=== PATIENT | female | born 1965 | race Caucasian/White ===

== ENCOUNTER 2018-09-24 05:39 | Inpatient (IN) | payer BC ==
[2018-09-24] MEDS: DEXTROSE 5%-0.45% NACL 1,000 ML IV ×2 (04:00→14:18)
[2018-09-24] MEDS: VANCOMYCIN 1 GM 250 ML IVPB (06:31)
[2018-09-24] MEDS: LACTATED RINGER'S 1,000 ML IV* (06:31)
[2018-09-24] MEDS ORDERED: PROPOFOL 20 ML (06:51)
[2018-09-24] MEDS ORDERED: BUPIVACAINE 0.25% (MPF) 30 ML INJ (06:51)
[2018-09-24] MEDS ORDERED: POLYMYXIN/BACITRACIN 1L IRRIG (06:51)
[2018-09-24] MEDS ORDERED: ROCURONIUM 50 MG INJ (06:53)
[2018-09-24 07:20] LABS: ADD UMIC YES; INR 0.96; PROTIME 12.9 Sec (11.9-14.9); UR ASCORBIC ACID 40 mg/dL (NEGATIVE); UR BACTERIA FEW /HPF (NONE SEEN); UR BILIRUBIN (Dip) NEGATIVE (NEGATIVE); UR BLOOD (Dip) NEGATIVE (NEGATIVE); UR CLARITY SLIGHTLY CLOUDY (CLEAR); UR COLOR YELLOW (YELLOW); UR GLUCOSE (Dip) NEGATIVE (NEGATIVE); UR KETONES (Dip) NEGATIVE (NEGATIVE); UR LEUKOCYTE ESTERASE (Dip) 3+ Leu/ul (NEGATIVE); UR MUCUS FEW /HPF (NONE SEEN); UR NITRITE (Dip) NEGATIVE (NEGATIVE); UR NONSQUAMOUS EPITHELIAL CELL 3 /HPF (NONE SEEN); UR RBC 7 /HPF (0-5); UR SPECIFIC GRAVITY (Dip) 1.018 (1.003-1.030); UR SQUAMOUS EPITHELIAL CELL FEW /HPF (FEW); UR TOTAL PROTEIN (Dip) 1+ mg/dl (NEGATIVE); UR UROBILINOGEN (Dip) NEGATIVE (NEGATIVE); UR WBC 64 /HPF (0-5)
[2018-09-24 07:21] LABS: PARTIAL THROMBOPLASTIN TIME 26.6 Sec (23.0-35.0)
[2018-09-24] MEDS ORDERED: HYDROmorphONE 2 MG/ML SYG (08:18)
[2018-09-24] MEDS: BUPIVACAINE 0.5%/EPI (SDV) 30 ML INJ (09:23)
[2018-09-24] MEDS: GELATIN SIZE 100 SPONGE (09:24)
[2018-09-24] MEDS: GENTAMICIN 80 MG INJ (09:24)
[2018-09-24] MEDS: HEPARIN 1000 UNITS/ML 10 ML INJ (09:25)
[2018-09-24] MEDS: THROMBIN (BOVINE) 5,000 UNIT VIAL TP (09:25)
[2018-09-24] MEDS ORDERED: NEOSTIGMINE 10 MG INJ (11:33)
[2018-09-24] MEDS ORDERED: GLYCOPYRROLATE 0.4 MG INJ (11:34)
[2018-09-24] MEDS ORDERED: FENTAnyl 50 MCG/ML VIAL IV ×3 (12:00)
[2018-09-24] MEDS ORDERED: METOCLOPRAMIDE 10 MG INJ IV (12:00)
[2018-09-24] MEDS ORDERED: ALBUTEROL 0.083% (NEB) 2.5 MG/3 ML AMP HHN (12:00)
[2018-09-24] MEDS ORDERED: MEPERIDINE 25 MG INJ IV (12:00)
[2018-09-24] MEDS ORDERED: EPHEDrine SULFATE 50 MG/5 ML SYG IV (12:00)
[2018-09-24] MEDS ORDERED: HYDROmorphONE 1 MG/5 ML IV SYRINGE IV ×3 (12:00)
[2018-09-24] MEDS ORDERED: hydrALAzine 20 MG INJ IV (12:00)
[2018-09-24] MEDS ORDERED: DIPHENHYDRAMINE 50 MG INJ IV (12:00)
[2018-09-24] MEDS ORDERED: LABETALOL HCL 20MG INJ IV (12:00)
[2018-09-24] MEDS ORDERED: MIDAZOLAM 1 MG/ML 2 ML INJ IV (12:00)
[2018-09-24] MEDS ORDERED: TRIMETHOBENZAMIDE 100 MG/ML VIAL IM (12:30)
[2018-09-24] MEDS ORDERED: PROCHLORPERAZINE 10 MG TAB PO (12:30)
[2018-09-24] MEDS ORDERED: HYDROCODONE/APAP (5/325) TAB PO ×2 (12:30)
[2018-09-24] MEDS ORDERED: NACL 0.9% 3 ML SYG IV (12:30)
[2018-09-24] MEDS ORDERED: ACETAMINOPHEN 325 MG TAB PO (12:30)
[2018-09-24] MEDS ORDERED: DIPHENHYDRAMINE 50 MG CAP PO (12:30)
[2018-09-24] MEDS ORDERED: BETHANECHOL 25 MG TAB PO (12:30)
[2018-09-24] MEDS ORDERED: ZOLPIDEM 5 MG TAB PO (12:30)
[2018-09-24] MEDS ORDERED: CEPASTAT LOZENGE MT (12:30)
[2018-09-24] MEDS ORDERED: NALOXONE (0.4 MG/ML) INJ IV (12:30)
[2018-09-24] MEDS ORDERED: DIAZEPAM 5 MG/ML SYG IM (12:30)
[2018-09-24] MEDS: HYDROmorphONE 0.2 MG/ML PCA IV (13:00)
[2018-09-24] MEDS: ONDANSETRON 4 MG INJ IV (14:41)
[2018-09-24] MEDS: VANCOMYCIN 1 GM (PMX) 250 ML IVPB (17:16)
[2018-09-24] MEDS: RANITIDINE 150 MG TAB PO (20:44)
[2018-09-24] MEDS: MONTELUKAST 10 MG TAB PO (20:44)
[2018-09-25] MEDS: HYDROmorphONE 0.2 MG/ML PCA IV (04:21)
[2018-09-25 05:19] LABS: HEMATOCRIT 31.9 % (37.0-47.0); HEMOGLOBIN 10.1 g/dl (12.0-16.0)
[2018-09-25] MEDS: VANCOMYCIN 1 GM (PMX) 250 ML IVPB (05:39)
[2018-09-25 06:04] LABS: ANION GAP 7 (5-13); BLOOD UREA NITROGEN 23 mg/dl (7-20); CALCIUM 8.1 mg/dl (8.4-10.2); CARBON DIOXIDE 25 mmol/L (21-31); CHLORIDE 106 mmol/L (97-110); CREATININE 0.92 mg/dl (0.44-1.00); Estimated GFR > 60 mL/min (>60); GLUCOSE 127 mg/dl (70-220); POTASSIUM 4.6 mmol/L (3.5-5.1); SODIUM 138 mmol/L (135-144)
[2018-09-25] MEDS: ONDANSETRON 4 MG INJ IV (07:40)
[2018-09-25] MEDS: DOCUSATE SODIUM 100 MG CAP PO ×2 (08:45→20:29)
[2018-09-25] MEDS: FERROUS SULFATE (EC) 325 MG TAB PO ×3 (08:45→20:28)
[2018-09-25] MEDS: ASCORBIC ACID 500 MG TAB PO ×2 (08:45→20:29)
[2018-09-25] MEDS: BENAZEPRIL 20 MG TAB PO (08:46)
[2018-09-25] MEDS: GABAPENTIN 100 MG CAP PO (08:46)
[2018-09-25] MEDS: RANITIDINE 150 MG TAB PO ×2 (08:46→20:29)
[2018-09-25] MEDS: ATENOLOL 25 MG TAB PO (08:46)
[2018-09-25] MEDS: FOLIC ACID 1 MG TAB PO (08:46)
[2018-09-25] MEDS: DEXTROSE 5%-0.45% NACL 1,000 ML IV ×2 (08:50→22:25)
[2018-09-25] MEDS: ANASTROZOLE 1 MG TAB PO (09:02)
[2018-09-25] MEDS: BETHANECHOL 25 MG TAB PO ×2 (11:19→16:19)
[2018-09-25] MEDS: HYDROCODONE/APAP (5/325) TAB PO ×2 (14:19→20:29)
[2018-09-25] MEDS ORDERED: HYDROCODONE/APAP (5/325) TAB PO (14:30)
[2018-09-25] MEDS: MONTELUKAST 10 MG TAB PO (20:29)
[2018-09-26] MEDS: HYDROCODONE/APAP (5/325) TAB PO ×4 (00:55→21:06)
[2018-09-26 05:04] LABS: ADD MAN DIFF? NO
[2018-09-26 05:10] LABS: WHITE BLOOD COUNT 14.4 10^3/ul (4.8-10.8)
[2018-09-26 05:10] LABS: BASOPHILS % 0.2 % (0.0-2.0); EOSINOPHILS # 0.1 10^3/ul (0.0-0.5); EOSINOPHILS % 0.5 % (0.0-7.0); HEMOGLOBIN 10.1 g/dl (12.0-16.0); LYMPHOCYTES % 7.2 % (15.0-51.0); MEAN CORPUSCULAR HEMOGLOBIN 27.7 pg (29.0-33.0); MEAN CORPUSCULAR HGB CONC 32.6 g/dl (32.0-37.0); MEAN CORPUSCULAR VOLUME 85.2 fl (82.0-101.0); MEAN PLATELET VOLUME 11.1 fl (7.4-10.4); MONOCYTE # 1.5 10^3/ul (0.3-0.9); MONOCYTES % 10.1 % (0.0-11.0); NEUTROPHIL # 11.7 10^3/ul (1.6-7.5); NEUTROPHILS % 81.4 % (39.0-77.0); PLATELET COUNT 145 10^3/UL (140-415); RED BLOOD COUNT 3.64 10^6/ul (4.20-5.40); RED CELL DISTRIBUTION WIDTH 13.9 % (11.5-14.5)
[2018-09-26 05:41] LABS: ANION GAP 7 (5-13); BLOOD UREA NITROGEN 19 mg/dl (7-20); CARBON DIOXIDE 26 mmol/L (21-31); CHLORIDE 107 mmol/L (97-110); CREATININE 0.84 mg/dl (0.44-1.00); Estimated GFR > 60 mL/min (>60); GLUCOSE 108 mg/dl (70-220); POTASSIUM 4.4 mmol/L (3.5-5.1); SODIUM 140 mmol/L (135-144)
[2018-09-26] MEDS: BENAZEPRIL 20 MG TAB PO (09:00)
[2018-09-26] MEDS: GABAPENTIN 100 MG CAP PO (09:19)
[2018-09-26] MEDS: DIAZEPAM 5 MG TAB PO ×2 (09:19→16:39)
[2018-09-26] MEDS: ANASTROZOLE 1 MG TAB PO (09:20)
[2018-09-26] MEDS: FOLIC ACID 1 MG TAB PO (09:20)
[2018-09-26] MEDS: DOCUSATE SODIUM 100 MG CAP PO ×2 (09:20→21:06)
[2018-09-26] MEDS: RANITIDINE 150 MG TAB PO ×2 (09:21→21:06)
[2018-09-26] MEDS: ATENOLOL 25 MG TAB PO (09:21)
[2018-09-26] MEDS: ASCORBIC ACID 500 MG TAB PO ×2 (09:21→21:06)
[2018-09-26] MEDS: FERROUS SULFATE (EC) 325 MG TAB PO ×3 (09:21→21:06)
[2018-09-26] MEDS: DEXTROSE 5%-0.45% NACL 1,000 ML IV (12:43)
[2018-09-26] MEDS: AL HYDROX/MG HYDROX/SIMETH 30 ML CUP PO (13:18)
[2018-09-26] MEDS: MONTELUKAST 10 MG TAB PO (21:06)
[2018-09-27] MEDS: DEXTROSE 5%-0.45% NACL 1,000 ML IV (03:01)
[2018-09-27] MEDS: HYDROCODONE/APAP (5/325) TAB PO ×3 (05:58→15:02)
[2018-09-27] MEDS: AL HYDROX/MG HYDROX/SIMETH 30 ML CUP PO (05:59)
[2018-09-27] MEDS: RANITIDINE 150 MG TAB PO (09:36)
[2018-09-27] MEDS: FOLIC ACID 1 MG TAB PO (09:36)
[2018-09-27] MEDS: DOCUSATE SODIUM 100 MG CAP PO (09:36)
[2018-09-27] MEDS: FERROUS SULFATE (EC) 325 MG TAB PO ×2 (09:36→13:00)
[2018-09-27] MEDS: GABAPENTIN 100 MG CAP PO (09:37)
[2018-09-27] MEDS: ATENOLOL 25 MG TAB PO (09:37)
[2018-09-27] MEDS: BENAZEPRIL 20 MG TAB PO (09:37)
[2018-09-27] MEDS: ASCORBIC ACID 500 MG TAB PO (09:37)
[2018-09-27] MEDS: ANASTROZOLE 1 MG TAB PO (09:50)
[2018-09-27] MEDS ORDERED: NA PHOSPHATE/BIPHOS 133 ML ENEMA PR (10:30)
[2018-09-27] MEDS: BISACODYL 10 MG SUPP PR (11:26)
== END 2018-09-27 15:45 | disposition home or self-care (01) | DRG 27 ==
LOC: REC 05:39 → MS1 09-25 13:34 → ICU 13:53
PROC: 00BX0ZX Excision of Thoracic Spinal Cord, Open Approach, Diagnostic (ICD-10-PCS; principal; 2018-09-24 07:00)
PROC: 00Q20ZZ Repair Dura Mater, Open Approach (ICD-10-PCS; 2018-09-24 07:00)
PROC: 01N80ZZ Release Thoracic Nerve, Open Approach (ICD-10-PCS; 2018-09-24 07:00)
PROC: 4A11X4G Monitoring of Peripheral Nervous Electrical Activity, Intraoperative, External Approach (ICD-10-PCS; 2018-09-24 07:00)
DX: G96.19 Other disorders of meninges, not elsewhere classified (principal); I10 Essential (primary) hypertension; C50.919 Malignant neoplasm of unspecified site of unspecified female breast; Z95.2 Presence of prosthetic heart valve; M19.90 Unspecified osteoarthritis, unspecified site; G89.4 Chronic pain syndrome; Z79.02 Long term (current) use of antithrombotics/antiplatelets
CPT/HCPCS: 72020; 80048; 81001; 85014; 85018; 85025; 85610; 85730; 86850; 86900; 86901; 86920; 87081; 87086; 88304; 88311; 97110; 97116; 97163; 97530